=== PATIENT | female | born 1985 | race Asian ===

== ENCOUNTER 2019-07-17 09:22 | Outpatient (REF) | payer OTHER, SELFPAY ==
--- NOTE | 2019-07-17 08:30 | PAPFT_PTH ---
PATIENT: CEDRIC MOJICA LOC: [facility] U#:[id number] AGE/SX: 34/F ROOM: RE07/17/[address]: Maurisio Patten : 1985 BED: DIS: 07/17/2019 SPEC #: [id number] RECD: 07/17/19 18:17 STATUS: MARCELL REQ #: [id number] LAST: 07/17/19 08:[address]: Maurisio Patten DEPT: [facility] Cytology RECD BY: Maddie Merino Tissues: 1 - CX/ENDOCX FOR PAP SMEARS Procedures: PAP THIN PREP/UVM Screening HPV DNA PROBE Comments: [id number]
== END 2019-07-17 09:42 ==
LOC: NCHCN 09:22
PROVIDERS: PCP Nurse Practitioner Family; Visit Provider Nurse Practitioner Family
DX: Z12.4 Encounter for screening for malignant neoplasm of cervix (principal); Z11.51 Encounter for screening for human papillomavirus (HPV); Z00.00 Encounter for general adult medical examination without abnormal findings
CPT/HCPCS: 88142; 87624

== ENCOUNTER 2020-08-09 15:50 | Outpatient (REF) | payer OTHER, SELFPAY ==
[2020-08-09 18:58] LABS: HCT 39.9 % (36.0-46.0); HGB 13.4 g/dL (11.2-15.7); MCH 29.1 pg (27.0-33.0); MCHC 33.6 % (32.0-36.0); MCV 86.7 fL (80-95); Platelet Count 351 10^3/uL (130-400); RDW 11.9 % (11.7-14.6); RDW-SD 37.9 fL; WBC 6.32 10^3/uL (4.4-10.8)
[2020-08-09 18:59] LABS: Bilirubin Negative (Negative); Blood Negative (Negative); Clarity Clear (Clear); Glucose Negative (Negative); Ketones Negative (Negative); Leukocyte Esterase Negative (Negative); Nitrite Negative (Negative); Specific Gravity 1.025 (1.005-1.025); Urobilinogen 0.2 EU/dL (Up TO 0.2)
[2020-08-09 19:17] LABS: Anion Gap 7.2 mmol/L (3-11); BUN 14 mg/dL (7-18); CO2 27.8 mmol/L (21.0-32.0); CREATININE 0.83 mg/dL (0.55-1.02); Calcium 8.6 mg/dL (8.5-10.1); Calculated LDL 93 mg/dL (<100); Chloride 103 mmol/L (98-107); Cholesterol 177 mg/dL (<200); Glucose 87 mg/dL (74-106); HDL Cholesterol 68 mg/dL (40-60); Potassium 3.5 mmol/L (3.5-5.1); Sodium 138 mmol/L (136-145); Triglyceride 81 mg/dL (<150)
[2020-08-12 15:13] LABS: Chlamydia Result Negative (Negative); GC Result Negative (Negative)
== END 2020-08-09 16:10 ==
LOC: NCHCN 15:50
PROVIDERS: PCP Nurse Practitioner Family; Visit Provider Nurse Practitioner Family
DX: N89.8 Other specified noninflammatory disorders of vagina (principal); Z00.00 Encounter for general adult medical examination without abnormal findings
CPT/HCPCS: 80048; 80061; 85027; 87491; 87591; 81003; 87480; 87510; 87660